=== PATIENT | female | born 1995 | race Caucasian/White ===

== ENCOUNTER 2018-12-11 09:49 | Outpatient (CLI) | payer MEDICAID ==
[~2018-12-11] VITALS: Ht 152.4 cm; Wt 93.4 kg
[~2018-12-11 09:49] MED LIST: AMOX500C2 PO; CEPH500C PO; PREN-93 PO
[2018-12-11 10:12] VITALS: Ht 152.4 cm; Wt 93.4 kg
[2018-12-11 10:13] VITALS: BP 120/73; PULSE 81; RESP 19
== END 2018-12-11 12:10 | disposition home or self-care (01) ==
LOC: OBT 09:49 → L-D 09:51 → OBT 12:10
PROVIDERS: ATTEND Obstetrics & Gynecology
DX: O46.8X3 Other antepartum hemorrhage, third trimester (principal); Z3A.39 39 weeks gestation of pregnancy
CPT/HCPCS: 76818; 81001; 87086; Z7500; G0463

== ENCOUNTER 2018-12-12 23:01 | Inpatient (IN) | payer MEDICAID ==
[~2018-12-12] VITALS: Ht 152.4 cm; Wt 96.0 kg
[~2018-12-12 23:01] MED LIST changes: -AMOX500C2 PO
[2018-12-12 23:10] VITALS: BP 134/84; PULSE 86; RESP 18
[2018-12-13] MEDS ORDERED: OXYTOCIN 30 UNITS/LR 500 ML IV PRN
[2018-12-13] MEDS ORDERED: METHYLERGONOVINE 0.2 MG INJ IM PRN
[2018-12-13] MEDS ORDERED: IBUPROFEN 600 MG TAB PO PRN
[2018-12-13] MEDS ORDERED: CARBOPROST 250 MCG INJ IM PRN
[2018-12-13] MEDS ORDERED: MISOPROSTOL 200 MCG TAB PR PRN
[2018-12-13] MEDS ORDERED: MINERAL OIL LIGHT 10 ML VIAL TOP PRN
[2018-12-13] MEDS ORDERED: LIDOCAINE 1% (MPF) 30 ML INJ INJ PRN
[2018-12-13] MEDS ORDERED: OXYTOCIN 30 UNITS/LR 500 ML IV SCH ×3
[2018-12-13] MEDS ORDERED: BUTORPHANOL 2 MG INJ IV PRN
[2018-12-13] MEDS: LACTATED RINGER'S 1,000 ML IV SCH ×5 (00:05→17:18)
[2018-12-13] MEDS: CEPHALEXIN 500 MG CAP PO SCH ×4 (01:07→17:30)
[2018-12-13] MEDS ORDERED: FENTAnyl 2MCG/ML-ROPIV 0.2% 100 ML ONE (02:03)
[2018-12-13] MEDS ORDERED: DIPHENHYDRAMINE 50 MG INJ IV PRN (02:30)
[2018-12-13] MEDS ORDERED: ONDANSETRON 4 MG INJ IV PRN (02:30)
[2018-12-13] MEDS ORDERED: NALOXONE (0.4 MG/ML) INJ IV PRN (02:30)
[2018-12-13] MEDS: FENTAnyl 2MCG/ML-ROPIV 0.2% 100 ML BAG EPI SCH ×3 (10:00→22:47)
[2018-12-14] MEDS: CEPHALEXIN 500 MG CAP PO SCH (00:09)
[2018-12-14] MEDS ORDERED: AMPICILLIN 2 GM/NS (PMX) 100 ML IVPB ONE (00:30)
[2018-12-14] MEDS: LACTATED RINGER'S 1,000 ML IV SCH ×2 (02:26→10:44)
[2018-12-14] MEDS: FENTAnyl 2MCG/ML-ROPIV 0.2% 100 ML BAG EPI SCH ×2 (02:38→07:18)
[2018-12-14] MEDS: AMPICILLIN 1 GM/NS (PMX) 50 ML IVPB SCH ×2 (04:31→08:10)
[2018-12-14] MEDS ORDERED: CEFAZOLIN 2 GM/50 ML (PMX) 50 ML IVPB ONE (10:30)
[2018-12-14] MEDS ORDERED: morphine SULFATE/PF (10 MG/10 ML) INJ ONE (12:34)
[2018-12-14] MEDS ORDERED: OXYTOCIN 10 UNIT INJ ONE ×2 (12:43→13:10)
[2018-12-14] MEDS ORDERED: MIDAZOLAM 1 MG/ML 2 ML INJ ONE (12:58)
[2018-12-14] MEDS ORDERED: FENTAnyl 50 MCG/ML VIAL ONE (12:58)
[2018-12-14] MEDS ORDERED: OXYTOCIN 30 UNITS/LR 500 ML IV SCH (13:48)
[2018-12-14] MEDS ORDERED: CARBOPROST 250 MCG INJ IM PRN (14:00)
[2018-12-14] MEDS ORDERED: CEFAZOLIN 2 GM/50 ML (PMX) 50 ML IVPB SCH (14:00)
[2018-12-14] MEDS ORDERED: OXYTOCIN 30 UNITS/LR 500 ML IV PRN (14:00)
[2018-12-14] MEDS ORDERED: METHYLERGONOVINE 0.2 MG INJ IM PRN (14:00)
[2018-12-14] MEDS ORDERED: NACL 0.9% 3 ML SYG IV SCH (14:00)
[2018-12-14] MEDS ORDERED: MISOPROSTOL 200 MCG TAB PR PRN (14:00)
[2018-12-14] MEDS ORDERED: ACETAMINOPHEN 325 MG TAB ONE (14:16)
[2018-12-14] MEDS ORDERED: ONDANSETRON 4 MG INJ IV PRN (14:30)
[2018-12-14] MEDS ORDERED: NALOXONE (0.4 MG/ML) INJ IV PRN (14:30)
[2018-12-14] MEDS ORDERED: ACETAMINOPHEN 325 MG TAB PO PRN (14:30)
[2018-12-14] MEDS ORDERED: HYDROmorphONE 0.5 MG/0.5 ML SYG IV PRN ×2 (14:30)
[2018-12-14] MEDS ORDERED: DIPHENHYDRAMINE 50 MG INJ IV PRN (14:30)
[2018-12-14] MEDS ORDERED: morphine 2 MG INJ IV PRN (14:30)
[2018-12-14] MEDS: KETOROLAC 30 MG INJ IV PRN ×2 (16:23→22:41)
[2018-12-14 17:00] VITALS: BP 138/87; PULSE 104; RESP 20
[2018-12-14] MEDS: PIPER-TAZO 3.375 GM IV (PMX) 100 ML IVPB SCH (18:06)
[2018-12-14] MEDS: LANOLIN HPA 1 PKT TOP PRN (18:12)
[2018-12-14 19:45] VITALS: BP 135/77; PULSE 91; RESP 18
[2018-12-14] MEDS: SENNA/DOCUSATE NA (8.6MG/50MG) TAB PO SCH (21:21)
[2018-12-14 23:45] VITALS: BP 112/72; PULSE 89; RESP 19
[2018-12-15] MEDS: PIPER-TAZO 3.375 GM IV (PMX) 100 ML IVPB SCH ×4 (02:08→21:58)
[2018-12-15] MEDS: LACTATED RINGER'S 1,000 ML IV SCH ×2 (03:35→09:17)
[2018-12-15 03:46] VITALS: BP 117/74; PULSE 95; RESP 18
[2018-12-15 08:00] VITALS: BP 111/58; PULSE 124; RESP 18
[2018-12-15] MEDS: KETOROLAC 30 MG INJ IV PRN (08:27)
[2018-12-15] MEDS: SENNA/DOCUSATE NA (8.6MG/50MG) TAB PO SCH ×2 (08:27→21:58)
[2018-12-15] MEDS: OXYCODONE/ACETAMINOPHEN (5/325) TAB PO PRN ×2 (13:56→21:59)
[2018-12-15 15:32] VITALS: BP 119/64; PULSE 120; RESP 19
[2018-12-15] MEDS: IBUPROFEN 600 MG TAB PO SCH ×2 (17:18→23:34)
[2018-12-15 19:35] VITALS: BP 105/56; PULSE 92; RESP 18
[2018-12-16 03:35] VITALS: BP 106/57; PULSE 92; RESP 19
[2018-12-16] MEDS: IBUPROFEN 600 MG TAB PO SCH ×4 (05:45→23:53)
[2018-12-16] MEDS: PIPER-TAZO 3.375 GM IV (PMX) 100 ML IVPB SCH ×2 (05:45→13:53)
[2018-12-16 08:00] VITALS: BP 97/51; PULSE 91; RESP 18
[2018-12-16] MEDS: SENNA/DOCUSATE NA (8.6MG/50MG) TAB PO SCH ×2 (09:00→20:17)
[2018-12-16] MEDS: OXYCODONE/ACETAMINOPHEN (5/325) TAB PO PRN ×3 (09:12→22:48)
[2018-12-16 15:55] VITALS: BP 106/56; PULSE 90; RESP 18
[2018-12-16] MEDS: LANOLIN HPA 1 PKT TOP PRN (17:21)
[2018-12-16 20:00] VITALS: BP 105/61; PULSE 101; RESP 19
[2018-12-17 04:00] VITALS: BP 117/78; PULSE 97; RESP 17
[2018-12-17] MEDS: IBUPROFEN 600 MG TAB PO SCH ×2 (06:32→12:33)
[2018-12-17 07:30] VITALS: BP 113/70; PULSE 94; RESP 22
[2018-12-17] MEDS ORDERED: DIPHTH/TET/ACEL PERTUSS (ADULT) 0.5 ML VIAL IM* ONE (09:00)
[2018-12-17] MEDS: SENNA/DOCUSATE NA (8.6MG/50MG) TAB PO SCH (09:22)
[2018-12-17] MEDS: OXYCODONE/ACETAMINOPHEN (5/325) TAB PO PRN (09:29)
== END 2018-12-17 12:50 | disposition home or self-care (01) | DRG 788 ==
LOC: OBT 23:01 → L-D 23:02 → OBT 23:34 → L-D 12-13 00:36 → MS1 12-14 16:56 → PP1 12-16 14:18
PROVIDERS: ADMIT Obstetrics & Gynecology; ATTEND Obstetrics & Gynecology
PROC: 10D00Z1 Extraction of Products of Conception, Low, Open Approach (ICD-10-PCS; principal; 2018-12-14 12:15)
DX: O32.4XX0 Maternal care for high head at term, not applicable or unspecified (principal); Z3A.39 39 weeks gestation of pregnancy; Z37.0 Single live birth; O77.0 Labor and delivery complicated by meconium in amniotic fluid
CPT/HCPCS: 62322; 80053; 81001; 84560; 85025; 85610; 85730; 86592; 86850; 86900; 86901; 87086; 87340; 90715; 99464; G0463; J0290; J0690; J1885; J2210; J2250; J2274; J2405; J2543; J2590; J3010; J7120